=== PATIENT | female | born 1975 | race Caucasian/White ===

== ENCOUNTER 2016-09-05 09:03 | Emergency (ER) | payer MEDICAID, OTHER ==
[~2016-09-05] VITALS: Ht 165.1 cm; Wt 72.7 kg
[~2016-09-05 09:03] MED LIST: PREN-169
[2016-09-05] MEDS ORDERED: LIDOCAINE HCL BUFFERED 1% 20 ML VIAL INJ ONE (11:00)
[2016-09-05] MEDS ORDERED: PERTUSS(ACELL),DIPH,TET VAC/PF 0.5 ML VIAL IM ONE (11:00)
[2016-09-05 12:21] VITALS: BP 121/70
[2016-09-05] MEDS ORDERED: BACITRACIN 0.9 GM PACKET OINTMENT TP ONE (12:30)
== END 2016-09-05 13:03 | disposition home or self-care (01) ==
LOC: EMS 09:05
DX: S81.812A Laceration without foreign body, left lower leg, initial encounter (principal); W22.8XXA Striking against or struck by other objects, initial encounter; Y93.89 Activity, other specified; Y92.89 Other specified places as the place of occurrence of the external cause; Y99.8 Other external cause status
CPT/HCPCS: 12004; 73590; 90471; 90715; 99284; J3490

== ENCOUNTER 2016-09-13 09:44 | Emergency (ER) | payer MEDICAID ==
[~2016-09-13] VITALS: Ht 152.4 cm; Wt 72.7 kg
[2016-09-13 11:30] VITALS: BP 125/78
== END 2016-09-13 11:49 | disposition home or self-care (01) ==
LOC: EMS 09:45
DX: Z48.02 Encounter for removal of sutures (principal)
CPT/HCPCS: 99282